=== PATIENT | male | born 1985 | race Caucasian/White ===

== ENCOUNTER 2017-10-27 03:38 | Emergency (ER) | payer OTHER ==
[~2017-10-27] VITALS: Ht 175.3 cm; Wt 90.3 kg
[2017-10-27 03:55] VITALS: BP 131/82; Ht 175.3 cm; Wt 90.3 kg
== END 2017-10-27 04:39 | disposition home or self-care (01) ==
LOC: ED 03:38
DX: J02.9 Acute pharyngitis, unspecified (principal); M54.2 Cervicalgia; F41.9 Anxiety disorder, unspecified; F17.210 Nicotine dependence, cigarettes, uncomplicated
CPT/HCPCS: 99406

== ENCOUNTER 2019-02-11 01:48 | Emergency (ER) | payer OTHER ==
[~2019-02-11] VITALS: Ht 175.3 cm; Wt 90.7 kg
[2019-02-11 01:55] VITALS: Ht 175.3 cm; Wt 90.7 kg
[2019-02-11 04:07] VITALS: BP 101/62
== END 2019-02-11 04:07 | disposition home or self-care (01) ==
LOC: ED 01:48
DX: S93.601A Unspecified sprain of right foot, initial encounter (principal); W51.XXXA Accidental striking against or bumped into by another person, initial encounter; Y93.67 Activity, basketball; Y92.310 Basketball court as the place of occurrence of the external cause; Y99.8 Other external cause status
CPT/HCPCS: Q0092

== ENCOUNTER 2019-02-22 09:36 | Emergency (ER) | payer OTHER ==
[~2019-02-22] VITALS: Ht 175.3 cm; Wt 91.6 kg
[2019-02-22 09:51] VITALS: BP 142/81; Ht 175.3 cm; Wt 91.6 kg
== END 2019-02-22 10:08 | disposition home or self-care (01) ==
LOC: ED 09:36
DX: M25.571 Pain in right ankle and joints of right foot (principal); Z02.79 Encounter for issue of other medical certificate

== ENCOUNTER 2019-03-23 03:36 | Emergency (ER) | payer OTHER ==
[~2019-03-23] VITALS: Ht 175.3 cm; Wt 93.0 kg
[2019-03-23 03:41] VITALS: Ht 175.3 cm; Wt 93.0 kg
[2019-03-23 03:59] VITALS: BP 116/83
== END 2019-03-23 03:59 | disposition home or self-care (01) ==
LOC: ED 03:36
DX: J20.9 Acute bronchitis, unspecified (principal); F17.200 Nicotine dependence, unspecified, uncomplicated
CPT/HCPCS: 99406

== ENCOUNTER 2020-04-04 20:08 | Emergency (ER) | payer OTHER ==
[~2020-04-04] VITALS: Ht 175.3 cm; Wt 95.3 kg
[2020-04-04 20:17] VITALS: Ht 175.3 cm; Wt 95.3 kg
[2020-04-04] MEDS ORDERED: FLE10 PO (22:07)
[2020-04-04] MEDS ORDERED: IBU600 M2 PO (22:07)
[2020-04-04 22:24] VITALS: BP 118/76
== END 2020-04-04 22:25 | disposition home or self-care (01) ==
LOC: ED 20:08
DX: S29.011A Strain of muscle and tendon of front wall of thorax, initial encounter (principal); M54.2 Cervicalgia; V49.49XA Driver injured in collision with other motor vehicles in traffic accident, initial encounter; Y93.I9 Activity, other involving external motion; Y92.488 Other paved roadways as the place of occurrence of the external cause; Y99.8 Other external cause status
CPT/HCPCS: J1885